=== PATIENT | female | born 2000 | race Caucasian/White ===

== ENCOUNTER 2024-01-05 16:46 | Observation (INO) ==
[2024-01-05 19:38] LABS: ABS Basophils 0.1 10^3/uL (0.0-0.1); ABS Eosinophils 0.1 10^3/uL (0.0-0.5); ABS Lymphocytes 2.6 10^3/uL (1.0-4.8); ABS Monocytes 0.7 10^3/uL (0.0-0.9); ABS Neutrophils 8.3 10^3/uL (1.5-7.6); ABS Nucleated RBC 0.01 10^3/ul; Eosinophil % 0.9 %; Hematocrit 40.9 % (35-45); Hemoglobin 13.6 g/dL (11.5-14.3); Lymphocyte % 22.2 %; Mean Corpuscular Hemoglobin 31.3 pg (27-33); Mean Corpuscular Hgb Conc 33.2 g/dL (31-36); Mean Corpuscular Volume 94.3 fL (80-97); Mean Platelet Volume 6.6 fL (7.5-11.2); Nucleated Red Blood Cells % 0.1 %/100WBC (0.0-0.8); Platelet Count 314 10^3/uL (150-450); Red Blood Count 4.34 10^6/uL (3.63-4.92); Red Cell Distribution Width 12.9 % (12-17); White Blood Count 11.8 10^3/uL (3.8-11.8)
[2024-01-05 20:02] LABS: ALT 12 U/L (7-52); AST 16 U/L (13-39); Albumin 4.4 g/dL (3.2-5.2); Albumin/Globulin Ratio 1.5 (1-3); Alkaline Phosphatase 61 U/L (35-149); Anion Gap 11 mmol/L (2-16); Blood Urea Nitrogen 14 mg/dL (6-24); C Reactive Protein 41.72 mg/L (<8.01); CO2 Carbon Dioxide 22 mmol/L (22-32); Calcium 9.4 mg/dL (8.6-10.3); Chloride 104 mmol/L (101-111); Creatinine, Serum 0.81 mg/dL (0.51-0.95); Globulin 2.9 g/dL (2-4); Glucose 90 mg/dL (70-100); Lipase < 10 U/L (11.0-82.0); Potassium 4.1 mmol/L (3.5-5.0); Sodium 137 mmol/L (135-145); Total Bilirubin 0.4 mg/dL (0.2-1.0); Total Protein 7.3 g/dL (6.4-8.9); eGFR CKD-EPI 104.5 (>60)
[2024-01-05 20:26] LABS: HCG Pregnancy < 0.60 mIU/mL
[2024-01-05] MEDS: Iohexol 350 (CONTRAST) 500 ML MDV IV ONE (20:46)
[2024-01-05] MEDS: Piperacillin/Tazobac 3.375 BAG 3.375 GM/100 ML BAG IV ONE (21:38)
[2024-01-05] MEDS: Ondansetron 4 mg VIAL 2 MG/ML 2 ml VIAL IV ONE (21:44)
[2024-01-05] MEDS ORDERED: HYDROmorphone 0.5 MG/0.5 ML SYRINGE IV SLOW PU PRN (22:00)
[2024-01-05] MEDS: Lactated Ringers 1000 ml BAG 1,000 ML IV ONE (22:39)
[2024-01-06] MEDS: NS 0.9% 1000 ml BAG 1,000 ML IV SCH (00:24)
[2024-01-06 00:44] LABS: Urine Appearance Clear; Urine Bacteria Absent /HPF (Absent); Urine Bilirubin Negative (Negative); Urine Blood 2+ (Negative); Urine Color Light-Yellow; Urine Glucose Negative (Negative); Urine Ketones 1+ (Negative); Urine Nitrite Negative (Negative); Urine Protein Trace (Negative); Urine Red Blood Cell Trace(0-2/hpf) /HPF (0-Trace); Urine Specific Gravity >1.050 (1.002-1.030); Urine Squamous Epithelial Cell Present /HPF (Absent); Urine Urobilinogen Negative (Negative); Urine White Blood Cell Trace(0-5/hpf) /HPF (0-Trace); Urine pH 5.5 (5.0-8.0)
[2024-01-06] MEDS: Piperacillin/Tazobac 3.375 BAG 3.375 GM/100 ML BAG IV SCH (02:48)
[2024-01-06] MEDS ORDERED: Propofol 10 MG/ML 20 ML BTL ONE (13:45)
[2024-01-06] MEDS ORDERED: Ondansetron 4 mg VIAL 2 MG/ML 2 ml VIAL ONE ×2 (13:45→18:06)
[2024-01-06] MEDS ORDERED: Rocuronium 50 mg VIAL 10 mg/ml 5 ml VIAL (50 mg) ONE ×2 (13:45→17:00)
[2024-01-06] MEDS ORDERED: Lidocaine 2% PF 5 ML VIAL ONE (13:45)
[2024-01-06] MEDS ORDERED: fentaNYL 100 mcg/2 ml 50 MCG/ML VIAL ONE ×4 (13:46→18:15)
[2024-01-06] MEDS ORDERED: Midazolam 2 mg/2 ml VIAL 1 mg/ml 2 ml VIAL (2 mg) ONE (13:46)
[2024-01-06] MEDS ORDERED: Bupivacaine 0.25% SDV 30 ML ONE (15:24)
[2024-01-06] MEDS ORDERED: Dexamethasone IV 4 MG/ML VIAL 1 ml VIAL ONE (16:46)
[2024-01-06] MEDS ORDERED: Acetaminophen IV 1 GM/100ML 1,000 MG/100 ML BAG IV ONE ×2 (17:13→18:10)
[2024-01-06] MEDS: Ondansetron 4 mg VIAL 2 MG/ML 2 ml VIAL IV PRN (18:06)
[2024-01-06] MEDS ORDERED: Naloxone 0.4 mg VIAL 0.4 mg/ml 1 ml VIAL IV PRN (18:10)
[2024-01-06] MEDS ORDERED: Ondansetron 4 mg VIAL 2 MG/ML 2 ml VIAL IV PRN (18:10)
[2024-01-06] MEDS ORDERED: Scopolamine 1 mg/72hr PATCH TRANSDERM ONE (18:10)
[2024-01-06] MEDS ORDERED: Metoclopramide 5 MG/ML VIAL (10 mg) IV PRN (18:10)
[2024-01-06] MEDS ORDERED: Buffered Lidocaine 1% SYRIN 1 ml INTRADERM ONE (18:10)
[2024-01-06] MEDS: fentaNYL 100 mcg/2 ml 50 MCG/ML VIAL IV PRN (18:15)
[2024-01-06 18:31] VITALS: BP 124/74
[2024-01-06] MEDS ORDERED: Lactated Ringers 1000 ml BAG 1,000 ML IV SCH (19:00)
[2024-01-06] MEDS ORDERED: NS 0.45% 1000 ml BAG 1,000 ML IV SCH (19:00)
== END 2024-01-06 20:30 | disposition home or self-care (01) ==
LOC: ED 16:46 → EDHOLD 16:46 → AA 01-06 12:30
PROVIDERS: ADMIT Surgery Surgical Critical Care; ATTEND Surgery Surgical Critical Care

== ENCOUNTER 2024-01-17 11:37 | Inpatient (IN) ==
[2024-01-17] MEDS: Lactated Ringers 1000 ml BAG 1,000 ML IV ONE (12:34)
[2024-01-17 12:39] LABS: ABS Basophils 0.1 10^3/uL (0.0-0.1); ABS Eosinophils 0.1 10^3/uL (0.0-0.5); ABS Lymphocytes 1.9 10^3/uL (1.0-4.8); ABS Monocytes 0.7 10^3/uL (0.0-0.9); ABS Neutrophils 13.9 10^3/uL (1.5-7.6); Eosinophil % 0.5 %; Hematocrit 36.9 % (35-45); Hemoglobin 12.7 g/dL (11.5-14.3); Lymphocyte % 11.7 %; Mean Corpuscular Hemoglobin 31.8 pg (27-33); Mean Corpuscular Hgb Conc 34.3 g/dL (31-36); Mean Corpuscular Volume 92.6 fL (80-97); Mean Platelet Volume 6.1 fL (7.5-11.2); Platelet Count 703 10^3/uL (150-450); Red Blood Count 3.98 10^6/uL (3.63-4.92); Red Cell Distribution Width 13.1 % (12-17); White Blood Count 16.6 10^3/uL (3.8-11.8)
[2024-01-17 13:06] LABS: ALT 8 U/L (7-52); AST 10 U/L (13-39); Albumin 3.7 g/dL (3.2-5.2); Alkaline Phosphatase 74 U/L (35-149); Anion Gap 12 mmol/L (2-16); Blood Urea Nitrogen 10 mg/dL (6-24); C Reactive Protein 232.62 mg/L (<8.01); CO2 Carbon Dioxide 28 mmol/L (22-32); Calcium 9.4 mg/dL (8.6-10.3); Chloride 98 mmol/L (101-111); Creatinine, Serum 0.74 mg/dL (0.51-0.95); Globulin 3.6 g/dL (2-4); Glucose 106 mg/dL (70-100); Potassium 4.5 mmol/L (3.5-5.0); Sodium 138 mmol/L (135-145); Total Bilirubin 0.3 mg/dL (0.2-1.0); Total Protein 7.3 g/dL (6.4-8.9); eGFR CKD-EPI 116.5 (>60)
[2024-01-17 13:18] LABS: HCG Pregnancy < 0.60 mIU/mL
[2024-01-17] MEDS: Iohexol 350 (CONTRAST) 500 ML MDV IV ONE (13:58)
[2024-01-17] MEDS: oxyCODONE/Acetamin 5/325 mg TAB PO PRN (15:07)
[2024-01-17] MEDS: Piperacillin/Tazobac 3.375 BAG 3.375 GM/100 ML BAG IV ONE (15:07)
[2024-01-17] MEDS: NS 0.9% 100 ml BAG 100 ML IV SCH (15:20)
[2024-01-17] MEDS: Ondansetron 4 mg VIAL 2 MG/ML 2 ml VIAL IV PRN (18:32)
[2024-01-17] MEDS ORDERED: Piperacillin/Tazobac 3.375 BAG 3.375 GM/100 ML BAG IV SCH (20:00)
[2024-01-17] MEDS: Piperacillin/Tazobac 3.375 BAG 3.375 GM/100 ML BAG IV SCH (20:10)
[2024-01-17] MEDS: LACTATED RINGERS 1000 ML BAG IV SCH (20:42)
[2024-01-17] MEDS: NS 0.9% 1,000 ML IV SCH (21:53)
[2024-01-18] MEDS: LACTATED RINGERS 1000 ML BAG IV ONE (03:21)
[2024-01-18 08:40] LABS: INR 1.44 (0.83-1.13)
[2024-01-18] MEDS ORDERED: Naloxone 0.4 mg VIAL 0.4 mg/ml 1 ml VIAL IV PUSH PRN (09:12)
[2024-01-18] MEDS ORDERED: Flumazenil 0.5 mg/5 ml 0.1 MG/ML 5 ml VIAL IV PRN (09:12)
[2024-01-18] MEDS: Midazolam 10 mg/10 ml VIAL 1 mg/ml 10 ml VIAL (10 mg) IV SLOW PU ONE (12:04)
[2024-01-18] MEDS: fentaNYL 250 mcg/5 ml 50 MCG/ML 5 ml VIAL (250 MCG) ONE (12:04)
[2024-01-18] MEDS: fentaNYL 100 mcg/2 ml 50 MCG/ML VIAL IV SLOW PU ONE (12:04)
[2024-01-18] MEDS: Midazolam 2 mg/2 ml VIAL 1 mg/ml 2 ml VIAL (2 mg) ONE (12:04)
[2024-01-18] MEDS: NS 0.9% 1000 ml BAG 1,000 ML IV SCH (14:42)
[2024-01-19 06:18] LABS: ABS Eosinophils 0.1 10^3/uL (0.0-0.5); ABS Lymphocytes 2.4 10^3/uL (1.0-4.8); ABS Monocytes 0.7 10^3/uL (0.0-0.9); ABS Neutrophils 6.5 10^3/uL (1.5-7.6); ABS Nucleated RBC 0.01 10^3/ul; Eosinophil % 1.2 %; Hematocrit 30.1 % (35-45); Hemoglobin 10.4 g/dL (11.5-14.3); Lymphocyte % 24.5 %; Mean Corpuscular Hemoglobin 32.2 pg (27-33); Mean Corpuscular Hgb Conc 34.6 g/dL (31-36); Mean Corpuscular Volume 92.9 fL (80-97); Mean Platelet Volume 6.2 fL (7.5-11.2); Nucleated Red Blood Cells % 0.1 %/100WBC (0.0-0.8); Platelet Count 600 10^3/uL (150-450); Red Blood Count 3.24 10^6/uL (3.63-4.92); Red Cell Distribution Width 12.9 % (12-17); White Blood Count 9.7 10^3/uL (3.8-11.8)
[2024-01-19 06:54] LABS: Calcium 8.2 mg/dL (8.6-10.3); Creatinine, Serum 0.74 mg/dL (0.51-0.95); eGFR CKD-EPI 116.5 (>60)
[2024-01-19] MEDS: NS 0.9% 1000 ml BAG 1,000 ML IV SCH (10:46)
[2024-01-19] MEDS: Iohexol 300 (CONTRAST) 10 ML SDV IV ONE (11:03)
[2024-01-19] MEDS ORDERED: Polyethylene Glycol 3350 17 GM PACKET PO PRN (11:08)
[2024-01-19] MEDS: oxyCODONE/Acetamin 5/325 mg TAB PO PRN (18:33)
[2024-01-20] MEDS: oxyCODONE/Acetamin 5/325 mg TAB PO PRN ×2 (00:26→21:19)
[2024-01-20 06:41] LABS: ABS Eosinophils 0.2 10^3/uL (0.0-0.5); ABS Lymphocytes 1.9 10^3/uL (1.0-4.8); ABS Monocytes 0.5 10^3/uL (0.0-0.9); ABS Neutrophils 5.5 10^3/uL (1.5-7.6); Eosinophil % 2.1 %; Hematocrit 27.1 % (35-45); Hemoglobin 9.5 g/dL (11.5-14.3); Lymphocyte % 23.1 %; Mean Corpuscular Hemoglobin 32.7 pg (27-33); Mean Corpuscular Hgb Conc 35.2 g/dL (31-36); Mean Corpuscular Volume 92.9 fL (80-97); Mean Platelet Volume 6.5 fL (7.5-11.2); Platelet Count 527 10^3/uL (150-450); Red Blood Count 2.91 10^6/uL (3.63-4.92); Red Cell Distribution Width 13.2 % (12-17); White Blood Count 8.1 10^3/uL (3.8-11.8)
[2024-01-20] MEDS: Piperacillin/Tazobac 3.375 BAG 3.375 GM/100 ML BAG IV SCH (07:11)
[2024-01-20] MEDS ORDERED: oxyCODONE/Acetamin 5/325 mg TAB PO PRN (16:22)
[2024-01-22] MEDS ORDERED: HYDROmorphone 0.5 MG/0.5 ML SYRINGE IV SLOW PU PRN (08:21)
[2024-01-22] MEDS: Acetaminophen IV 1 GM/100ML 1,000 MG/100 ML BAG IV PRN (09:27)
[2024-01-22] MEDS ORDERED: Flumazenil 0.5 mg/5 ml 0.1 MG/ML 5 ml VIAL IV PRN (10:06)
[2024-01-22] MEDS ORDERED: Naloxone 0.4 mg VIAL 0.4 mg/ml 1 ml VIAL IV PUSH PRN (10:06)
[2024-01-22] MEDS: fentaNYL 100 mcg/2 ml 50 MCG/ML VIAL IV SLOW PU ONE (13:12)
[2024-01-22] MEDS: fentaNYL 100 mcg/2 ml 50 MCG/ML VIAL ONE (13:12)
[2024-01-22] MEDS: Midazolam 10 mg/10 ml VIAL 1 mg/ml 10 ml VIAL (10 mg) IV SLOW PU ONE (13:12)
[2024-01-22] MEDS: Midazolam 2 mg/2 ml VIAL 1 mg/ml 2 ml VIAL (2 mg) ONE (13:13)
[2024-01-25 14:35] VITALS: BP 105/67
== END 2024-01-25 16:30 | disposition home or self-care (01) | DRG 857 ==
LOC: ED 11:37 → EDHOLD 11:37 → SSU 16:54
PROVIDERS: ADMIT Surgery; ATTEND Surgery